=== PATIENT | male | born 1990 ===

== ENCOUNTER 2017-09-15 07:12 | Emergency (ER) | payer OTHER ==
[2017-09-15] MEDS ORDERED: Sodium Chloride 0.9% 1,000 ML IV STA (08:03)
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
--- NOTE | 2017-09-15 08:34 | CT ---
PROCEDURE: CT HEAD WITHOUT CONTRAST. HISTORY: head trauma COMPARISON: None available. TECHNIQUE: Axial computed tomography images were obtained through the head/brain without intravenous contrast. Radiation dose: Total exam DLP = 851.03 mGy-cm. This CT exam was performed using one or more of the following dose reduction techniques: Automated exposure control, adjustment of the mA and/or kV according to patient size, and/or use of iterative reconstruction technique. FINDINGS: HEMORRHAGE: No intracranial hemorrhage. BRAIN: Normal richey-white matter differentiation and density are appreciated throughout the cerebrum and cerebellum with the brainstem appearing unremarkable as well. There is no mass effect. There is no suspicious extra-axial fluid collection and the midline brain anatomy appears diffusely unremarkable. VENTRICLES: Unremarkable. No hydrocephalus. CALVARIUM: No destructive bony lesion or displaced fracture identified including through the skullbase. PARANASAL SINUSES: Acute left maxillary sinusitis with multifocal bilateral ethmoid sinus disease greater left than right. MASTOID AIR CELLS: Unremarkable as visualized. No inflammatory changes. OTHER FINDINGS: None. IMPRESSION: 1. No acute intracranial or cranial findings. 2. Right greater than left upper hansa facial contusion extending into the right frontal and temporal scalp regions.
[2017-09-15 08:38] LABS: BASO % 0.4 % (0.0-2.0); EOS # 0.1 K/uL (0.0-0.7); EOS % 0.9 % (0.0-4.0); HEMOGLOBIN 15.4 g/dL (12.0-18.0); LYMPH # 1.7 K/uL (1.0-4.3); MEAN CELL VOLUME 87.8 fl (80.0-94.0); MEAN CORPUSCULAR HEMOGLOBIN 29.7 pg (27.0-31.0); MEAN CORPUSCULAR HGB CONC 33.8 g/dL (33.0-37.0); MEAN PLATELET VOLUME 7.8 fl (7.2-11.7); MONO # 1.1 K/uL (0.0-0.8); MONO % 10.5 % (0.0-10.0); NEUT # 7.9 K/uL (1.8-7.0); NEUT % 72.2 % (50.0-75.0); RBC 5.19 Mil/uL (4.40-5.90); RED CELL DISTRIBUTION WIDTH 13.4 % (11.5-14.5); WHITE BLOOD COUNT 10.9 K/uL (4.8-10.8)
[2017-09-15 08:46] LABS: ALB/GLOB RATIO 1.5 (1.0-2.1); ALBUMIN 4.4 g/dL (3.5-5.0); ALT/SGPT 38 U/L (21-72); AST/SGOT 41 U/L (17-59); BLOOD UREA NITROGEN 14 mg/dl (9-20); CALCIUM 9.3 mg/dL (8.4-10.2); GFR AFRICAN-AMERICAN > 60; GFR NON-AFRICAN AMERICAN > 60
--- NOTE | 2017-09-15 09:41 | CT ---
PROCEDURE: CT MAXILLOFACIAL BONES WITHOUT CONTRAST HISTORY: r eye swelling COMPARISON: None TECHNIQUE: Contiguous axial CT images of the maxillofacial bones were obtained. Coronal and sagittal reformats were generated. Radiation dose: Total exam DLP = 764.36 mGy-cm. This CT exam was performed using one or more of the following dose reduction techniques: Automated exposure control, adjustment of the mA and/or kV according to patient size, and/or use of iterative reconstruction technique. FINDINGS: NASAL BONES: There is slight contour deformity appreciated at the right nasomaxillarysuture which is concave medially and may indicate minimal fractured though this may be normal. No significant soft tissue edema is associated. Clinically correlate here. No additional potential fracture throughout the facial bones. ORBITS: There is prominent right periorbital soft tissue edema edema which is predominantly supraorbital, medial and lateral which extends over across the frontal boss toward the left supraorbital and medial periorbital soft tissue without postseptal involvement in either orbit. Bony orbital margins appear intact without fracture or destructive lesion. Right facial edema/contusion extends into the right frontal and temporal scalp soft tissues. PARANASAL SINUSES/ MASTOIDS: Partial opacification of multiple left greater than right anterior ethmoid air cells identified as well as left middle and posterior ethmoid air cells. Acute left maxillary sinusitis is mild with mucosal inflammatory changes affecting both maxillary sinuses mildly. Rightward bony nasal septal deviation noted. MAXILLA: No fracture of the maxilla or destructive bony lesion. MANDIBLE/ TEMPOROMANDIBULAR JOINTS: Intact without fracture or destructive bony lesion. No TMJ disruption grossly appreciated. SKULL BASE: Unremarkable. TEMPORAL BONES: Middle ears and mastoid grossly unremarkable. OTHER FINDINGS: External auditory canal soft tissue likely reflecting cerumen. Clinically correlate further. IMPRESSION: Potential minimal fracture/diastases right nasomaxillary suture versus normal variant. No soft tissue edema is related and variant is quite possible. Remainder of the bony structures of the facial bones are intact. Prominent right greater than left periorbital soft tissue edema extending to the right frontal and temporal scalp soft tissues including limited hematoma. No underlying fracture appreciated in this distribution. No postseptal edema bilateral orbits. Limited sinus disease and right nasal septal deviation as discussed above. Discussed with Dr. Solis with written and read back verification 09/15/2017 8:55 p.m..
[2017-09-15] MEDS ORDERED: Lidocaine 1% Inj (20ml) ONE (11:48)
[2017-09-15 13:11] VITALS: BP 115/90; PULSE 63; RESP 19; TEMP 98.3
[2017-09-15 13:42] VITALS: O2SAT 98
== END 2017-09-15 13:11 | disposition home or self-care (01) ==
LOC: H.ER 07:12
DX: S01.111A Laceration without foreign body of right eyelid and periocular area, initial encounter (principal); S09.90XA Unspecified injury of head, initial encounter; Y04.0XXA Assault by unarmed brawl or fight, initial encounter; Y92.89 Other specified places as the place of occurrence of the external cause; F12.10 Cannabis abuse, uncomplicated; F17.210 Nicotine dependence, cigarettes, uncomplicated; J32.9 Chronic sinusitis, unspecified; J34.2 Deviated nasal septum
CPT/HCPCS: 12011; 70450; 70486; 80053; 85025; 96360; 99285; G0480; J7030

== ENCOUNTER 2017-09-20 13:44 | Emergency (ER) | payer OTHER ==
[2017-09-20 14:07] VITALS: BP 120/74; PULSE 91; RESP 18; TEMP 98.4; O2SAT 97
--- NOTE | 2017-09-20 14:45 | ED PDOC ---
HPI: Wound Care - HPI Time Seen by Provider: 09/20/17 14:09 Chief Complaint (Nursing): Wound Check Chief Complaint (Provider): Wound Check History Per: Patient Exam Limitations: no limitations Additional Complaint(s): 26 year old male presents to the emergency department for a suture removal to the right eyebrow. Offers no other complaints. Patient was seen here on 2017 for suture placement. Past Medical History Reviewed: Historical Data, Nursing Documentation, Vital Signs Vital Signs: Last Vital Signs Temp 98.4 F 09/20/17 14:05 Pulse 91 H 09/20/17 14:05 Resp 18 09/20/17 14:05 BP 120/74 09/20/17 14:05 Pulse Ox 97 09/20/17 14:05 - Medical History PMH: No Chronic Diseases - Surgical History Surgical History: No Surg Hx - Family History Family History: States: Unknown Family Hx - Social History Current smoker - smoking cessation education provided: No Alcohol: None Drugs: Denies - Immunization History Hx Tetanus Toxoid Vaccination: No Hx Influenza Vaccination: No Hx Pneumococcal Vaccination: No - Home Medications Home Medications: Ambulatory Orders Medication Instructions Recorded No Known Home Med 09/16/17 - Allergies Allergies/Adverse Reactions: Allergies Allergy/AdvReac Type Severity Reaction Status Date / Time No Known Allergies Allergy Verified 09/16/17 16:25 Review of Systems ROS Statement: Except As Marked, All Systems Reviewed And Found Negative (As per HPI, otherwise negative) Constitutional: Negative for: Other (Offers no other complaints) Eyes: Positive for: Other (right eyebrow suture removal) Physical Exam - Reviewed Nursing Documentation Reviewed: Yes Vital Signs Reviewed: Yes - Physical Exam Appears: Positive for: Well, Non-toxic, No Acute Distress Head Exam: Positive for: ATRAUMATIC, NORMAL INSPECTION, NORMOCEPHALIC Skin: Positive for: Normal Color, Warm, Dry Eye Exam: Positive for: Other (Four healing sutures in place without surrounding erythema or discharge. 2 most inferiour sutures are still not ready for removal. ) Neurologic/Psych: Positive for: Alert, Oriented (x3) - ECG O2 Sat by Pulse Oximetry: 97 (RA) Pulse Ox Interpretation: Normal Medical Decision Making Medical Decision Making: Time: 1415 Initial impression: Wound check Initial plan: 2 most superior sutures removed by PA without difficulty. Time: 142 Patient is medically clear for discharge. Two most inferior sutures are still not ready for removal. Advised to return to ED in two days for suture removal. Clinical Impression: Visit for suture removal. Visit for wound check. Scribe Attestation: Documented by Sarahy Lombardi, acting as a scribe for Cornelius Leach PA-C. Provider Scribe Attestation: All medical record entries made by the Scribe were at my direction and personally dictated by me. I have reviewed the chart and agree that the record accurately reflects my personal performance of the history, physical exam, medical decision making, and the department course for this patient. I have also personally directed, reviewed, and agree with the discharge instructions and disposition. Disposition - Clinical Impression Clinical Impression: Visit for suture removal, Visit for wound check - Patient ED Disposition Is Patient to be Admitted: No Counseled Patient/Family Regarding: Diagnosis, Need For Followup - Disposition Referrals: [facility] [Outside] Disposition: Routine/Home Disposition Time: 14:22 Condition: STABLE Additional Instructions: Return to ED in 2 days for suture removal. Return to ED immediately for any concerns or questions. Instructions: Stitches Removal, Wound Care (DC) Forms: [employer] (Niuean) Print Language: FAROESE
== END 2017-09-20 14:40 | disposition home or self-care (01) ==
LOC: H.ER 13:44 → SUPCPDRO 13:44 → H.ER 14:40
DX: Z48.02 Encounter for removal of sutures (principal)

== ENCOUNTER 2017-10-02 12:11 | Emergency (ER) | payer MEDICAID, OTHER ==
[2017-10-02 12:17] VITALS: BP 107/63; PULSE 78; RESP 18; TEMP 98.7; O2SAT 99
--- NOTE | 2017-10-02 12:34 | ED PDOC ---
HPI: Wound Care - HPI Time Seen by Provider: 10/02/17 12:30 Chief Complaint (Nursing): Suture/Staple Removal Chief Complaint (Provider): suture removal History Per: Patient (26 y/o male here for suture removal for laceration repaired 09/15/2017. Patient states he was seen soon after and had sutures partially removed but was advised to return in 2 days for removal of sutures. Was unable to follow up due to busy schedule. Notes improvement in right eye swelling but persistent redness despite eyedrops. Denies any visual disturbance. ) Past Medical History Reviewed: Historical Data, Nursing Documentation, Vital Signs Vital Signs: Last Vital Signs Temp 98.7 F 10/02/17 12:14 Pulse 78 10/02/17 12:14 Resp 18 10/02/17 12:14 BP 107/63 10/02/17 12:14 Pulse Ox 99 10/02/17 12:14 - Family History Family History: States: Unknown Family Hx - Immunization History Hx Tetanus Toxoid Vaccination: No Hx Influenza Vaccination: No Hx Pneumococcal Vaccination: No - Home Medications Home Medications: Ambulatory Orders Medication Instructions Recorded No Known Home Med 09/16/17 - Allergies Allergies/Adverse Reactions: Allergies Allergy/AdvReac Type Severity Reaction Status Date / Time No Known Allergies Allergy Verified 09/16/17 16:25 Review of Systems ROS Statement: Except As Marked, All Systems Reviewed And Found Negative Physical Exam - Reviewed Nursing Documentation Reviewed: Yes Vital Signs Reviewed: Yes - Physical Exam Appears: Positive for: Well, Non-toxic, No Acute Distress Head Exam: Positive for: ATRAUMATIC, NORMAL INSPECTION, NORMOCEPHALIC Skin: Positive for: Normal Color, Warm, DRY Eye Exam: Positive for: EOMI, PERRL. Negative for: Normal appearance ( subconjunctival hemorrhage lateral right eye) ENT: Negative for: Normal ENT Inspection (three sutures noted intact. No signs of erythema/swelling/discharge.) Neck: Positive for: Normal, Painless ROM Cardiovascular/Chest: Positive for: Regular Rate, Rhythm Respiratory: Positive for: CNT, Normal Breath Sounds Gastrointestinal/Abdominal: Positive for: Normal Exam, Soft Back: Positive for: Normal Inspection Extremity: Positive for: Normal ROM Neurologic/Psych: Positive for: Alert, Oriented - ECG O2 Sat by Pulse Oximetry: 99 - Progress ED Course And Treament: Verbal consent obtained prior to removal Removed without difficulty. Disposition - Clinical Impression Clinical Impression: Removal of suture, Subconjunctival hemorrhage of right eye - Patient ED Disposition Is Patient to be Admitted: No - Disposition Referrals: Sanya Perales MD [Staff Provider] - Disposition: Routine/Home Disposition Time: 12:34 Condition: FAIR Instructions: Stitches Removal, Subconjunctival Hemorrhage
== END 2017-10-02 12:39 | disposition home or self-care (01) ==
LOC: H.ER 12:11
DX: H11.31 Conjunctival hemorrhage, right eye (principal); Z48.02 Encounter for removal of sutures

== ENCOUNTER 2018-01-29 22:54 | Emergency (ER) | payer MEDICAID, OTHER ==
[2018-01-29 22:57] VITALS: BP 157/93; PULSE 78; RESP 18; TEMP 98.4; O2SAT 100
--- NOTE | 2018-01-29 23:16 | ED PDOC ---
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 Offers no physical complaints at this time. PMD: Tank Bartlett Past Medical History Reviewed: Historical Data, Nursing Documentation, Vital Signs Vital Signs: Last Vital Signs Temp 98.4 F 01/29/18 22:55 Pulse 78 01/29/18 22:55 Resp 18 01/29/18 22:55 BP 157/93 H 01/29/18 22:55 Pulse Ox 100 01/29/18 22:55 - Medical History PMH: No Chronic Diseases - Surgical History Surgical History: No Surg Hx - Family History Family History: States: Unknown Family Hx - Social History Current smoker - smoking cessation education provided: Yes (light) Alcohol: Social Drugs: Cannabis, Other (PCP) - Immunization History Hx Tetanus Toxoid Vaccination: No Hx Influenza Vaccination: No Hx Pneumococcal Vaccination: No - Home Medications Home Medications: Ambulatory Orders Medication Instructions Recorded No Known Home Med 09/16/17 - Allergies Allergies/Adverse Reactions: Allergies Allergy/AdvReac Type Severity Reaction Status Date / Time No Known Allergies Allergy Verified 01/29/18 22:57 Review of Systems ROS Statement: Except As Marked, All Systems Reviewed And Found Negative Psych: Positive for: Other (PCP and alcohol use) Physical Exam - Reviewed Nursing Documentation Reviewed: Yes Vital Signs Reviewed: Yes - Physical Exam Appears: Positive for: No Acute Distress Head Exam: Positive for: ATRAUMATIC, NORMOCEPHALIC Skin: Positive for: Normal Color Eye Exam: Positive for: Normal appearance Cardiovascular/Chest: Positive for: Regular Rate, Rhythm Respiratory: Positive for: Normal Breath Sounds. Negative for: Respiratory Distress Extremity: Positive for: Normal ROM Neurologic/Psych: Positive for: Alert, Oriented (x3), Mood/Affect (calm, cooperative), Gait (steady) - ECG O2 Sat by Pulse Oximetry: 100 (RA) Pulse Ox Interpretation: Normal Medical Decision Making Medical Decision Making: Time: 2314 Initial Impression: substance abuse Initial Plan: --Patient is calm, cooperative, and a&o x3 with a steady gait. He is stable to be d/c home at this time. Scribe Attestation: Documented by Maricruz Evans, acting as a scribe for Nneka Francisco MD. Provider Scribe Attestation: All medical record entries made by the Scribe were at my direction and personally dictated by me. I have reviewed the chart and agree that the record accurately reflects my personal performance of the history, physical exam, medical decision making, and the department course for this patient. I have also personally directed, reviewed, and agree with the discharge instructions and disposition. Disposition - Clinical Impression Clinical Impression: PCP abuse - Disposition Referrals: [facility] [Outside] Disposition: Routine/Home Disposition Time: 23:32 Condition: STABLE Instructions: Drug Abuse and Drug Addiction (DC), Drug Abuse Treatment Forms: [employer] (Greenlandic) Print Language: LIBERIAN
== END 2018-01-30 00:54 | disposition home or self-care (01) ==
LOC: H.ER 22:54
DX: F16.10 Hallucinogen abuse, uncomplicated (principal); F17.200 Nicotine dependence, unspecified, uncomplicated

== ENCOUNTER 2018-07-17 21:30 | Emergency (ER) | payer MEDICAID, OTHER ==
[2018-07-17 21:57] VITALS: BP 130/63; PULSE 81; RESP 18; TEMP 98.6; O2SAT 99
[2018-07-17] MEDS ORDERED: Bacitracin 500 Units/gm Oint Foilpak UD ONE (22:25)
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
[2018-07-17] MEDS: Bacitracin OINT 15GM TOP STA (23:03)
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
== END 2018-07-17 23:49 | disposition left against medical advice (07) ==
LOC: H.ER 21:30
DX: S09.90XA Unspecified injury of head, initial encounter (principal); S00.412A Abrasion of left ear, initial encounter; S00.12XA Contusion of left eyelid and periocular area, initial encounter; K03.81 Cracked tooth; W19.XXXA Unspecified fall, initial encounter; Y93.55 Activity, bike riding; H60.11 Cellulitis of right external ear; J32.0 Chronic maxillary sinusitis

== ENCOUNTER 2018-08-27 18:59 | Emergency (ER) | payer MEDICAID, OTHER ==
[2018-08-27 19:02] VITALS: BMI 23.3
[2018-08-27 19:05] VITALS: RESP 18
--- NOTE | 2018-08-27 19:21 | ED PDOC ---
HPI: General Adult Time Seen by Provider: 08/27/18 19:10 Chief Complaint (Nursing): Medical Clearance Chief Complaint (Provider): Medical clearance History Per: Patient, Other ([place] [employer]) History/Exam Limitations: no limitations Severity: Moderate Additional Complaint(s): 27 year old male with no past medical history is brought into the ED by [facility], [place] for a medical and psychiatric evaluation prior to incarceration. Patient states that "the world is coming to an end," and denies having suicidal ideations or homicidal ideations. PMD: None provided. Past Medical History Reviewed: Historical Data, Nursing Documentation, Vital Signs Vital Signs: Last Vital Signs Temp 98.4 F 08/27/18 19:04 Pulse 82 08/27/18 19:04 Resp 18 08/27/18 19:04 BP 127/87 08/27/18 19:04 Pulse Ox 99 08/27/18 19:04 CHATO Report Viewed: Yes Primary Care Provider: FAMILY PROVIDER,NO - Medical History PMH: No Chronic Diseases Denies: Diabetes, Hepatitis, HIV, HTN, Seizures, Sexually Transmitted Disease - Family History Family History: States: No Known Family Hx - Social History Current smoker - smoking cessation education provided: Yes Drugs: Cannabis, Other (PCP) - Immunization History Hx Tetanus Toxoid Vaccination: No Hx Influenza Vaccination: No Hx Pneumococcal Vaccination: No - Home Medications Home Medications: Ambulatory Orders Medication Instructions Recorded Cephalexin [cephalexin] 500 mg PO TID 10 Days #30 cap 07/17/18 - Allergies Allergies/Adverse Reactions: Allergies Allergy/AdvReac Type Severity Reaction Status Date / Time No Known Allergies Allergy Verified 08/22/18 04:19 Review of Systems ROS Statement: Except As Marked, All Systems Reviewed And Found Negative Psych: Negative for: Suicidal ideation, Other (homicidal ideation) Physical Exam - Reviewed Nursing Documentation Reviewed: Yes Vital Signs Reviewed: Yes - Physical Exam Appears: Positive for: Well, Non-toxic, No Acute Distress Head Exam: Positive for: ATRAUMATIC, NORMOCEPHALIC Skin: Positive for: Normal Color, Warm, Dry Eye Exam: Positive for: Normal appearance Cardiovascular/Chest: Positive for: Regular Rate, Rhythm Respiratory: Positive for: Normal Breath Sounds Neurological/Psych: Positive for: Awake, Alert, Oriented (3x) - ECG O2 Sat by Pulse Oximetry: 99 (RA) Pulse Ox Interpretation: Normal Medical Decision Making Medical Decision Makin:10 Initial impression: 27 year old male brought into the ED by police for medical and psychiatric clearance prior to incarceration. Initial plan: * crisis evaluation Scribe Attestation: Documented by Marquita Evangelista, acting as a scribe for Aiden Rodriguez MD. Provider Scribe Attestation: All medical record entries made by the Scribe were at my direction and personally dictated by me. I have reviewed the chart and agree that the record accurately reflects my personal performance of the history, physical exam, medical decision making, and the department course for this patient. I have also personally directed, reviewed, and agree with the discharge instructions and disposition. Disposition - Clinical Impression Clinical Impression: Medical clearance for incarceration - Patient ED Disposition Is Patient to be Admitted: No Counseled Patient/Family Regarding: Diagnosis, Need For Followup - Disposition Disposition: Discharged/Transfer to Law Enforcement Disposition Time: 19:24 Condition: FAIR Additional Instructions: Medically and psychiatrically stable for incarceration Instructions: General (DC) Forms: [employer] (Greenlandic)
[2018-08-27 23:33] VITALS: BP 122/60; PULSE 78; TEMP 98; O2SAT 100
== END 2018-08-27 20:00 ==
LOC: H.ER 18:59
DX: Z00.8 Encounter for other general examination (principal); Z00.00 Encounter for general adult medical examination without abnormal findings